=== PATIENT | male | born 1980 | race African-American/Black ===

== ENCOUNTER 2016-09-21 23:20 | Emergency (ER) | payer OTHER, MEDICAID ==
[~2016-09-21] VITALS: Ht 177.8 cm; Wt 82.0 kg
[2016-09-22] MEDS ORDERED: LORAZEPAM 1MG TABLET PO ONE (01:15)
[2016-09-22] MEDS ORDERED: TETANUS, DIPHTHERIA, PERTUSSIS VAC/PF 0.5ML (>7YR OLD) IM ONE (01:15)
[2016-09-22] MEDS ORDERED: OLANZAPINE 2.5MG TABLET PO ONE (01:15)
[2016-09-22] MEDS ORDERED: BACITRACIN ZINC OINT UDPKT TOP ONE (01:15)
[2016-09-22] MEDS ORDERED: LIDOCAINE HCL 1% 20ML VIAL (Pyxis) INJ MC ONE (01:15)
[2016-09-22 01:40] LABS: BASOPHILS % 0.3 % (0.0-2.0); EOSINOPHILS % 0.1 % (0.0-5.0); HEMOGLOBIN. 14.4 g/dL (14.0-18.0); LYMPHOCYTES % 17.6 % (20.0-50.0); MEAN CORPUSCULAR VOLUME 90.7 fL (80.0-94.0); MEAN PLATELET VOLUME 8.5 fl (7.4-10.4); PLATELET 222 x1000/uL (130-400); RED BLOOD CELL COUNT 4.63 mill/uL (4.7-6.1)
[2016-09-22 01:42] LABS: CHLORIDE 99 mEq/L (98-107)
[2016-09-22 01:51] LABS: CARBON DIOXIDE 28 mEq/L (21-32); ETHANOL BLOOD < 10 mg/dL
[2016-09-22] MEDS ORDERED: DIVALPROEX SODIUM 250MG ER TABLET PO ONE (02:15)
[2016-09-22] MEDS ORDERED: OLANZAPINE 10 MG/VIAL IM ONE (02:30)
[2016-09-22] MEDS ORDERED: LORAZEPAM 2MG/ML CPJ IM ONE (02:30)
[2016-09-22 09:07] LABS: CLARITY URINE CLEAR (CLEAR); COLOR URINE YELLOW (YELLOW); GLUCOSE URINE NEGATIVE (NEGATIVE); KETONES URINE TRACE (NEGATIVE); LEUKOCYTE ESTERASE URINE NEGATIVE (NEGATIVE); NITRITE URINE NEGATIVE (NEGATIVE); OCCULT BLOOD URINE NEGATIVE (NEGATIVE); PH URINE 5.5 (4.5-8.0); PROTEIN URINE NEGATIVE (NEGATIVE); SPECIFIC GRAVITY URINE 1.008 (1.005-1.030); UROBILINOGEN URINE 0.2 E.U./dL (0.2-1.0)
[2016-09-22 09:20] LABS: *AMPHETAMINES SCREEN URINE PRESUMTIVE POSITIVE (NEGATIVE); *BARBITURATES SCREEN URINE NEGATIVE (NEGATIVE); *BENZODIAZEPINES SCREEN URINE NEGATIVE (NEGATIVE); *COCAINE SCREEN URINE NEGATIVE (NEGATIVE); CANNABINOID URINE SCREEN NEGATIVE (NEGATIVE); METHADONE URINE SCREEN NEGATIVE (NEGATIVE); OPIATES URINE SCREEN NEGATIVE (NEGATIVE); PHENCYCLIDINE URINE SCREEN NEGATIVE (NEGATIVE)
[2016-09-22 16:07] VITALS: BP 121/84
== END 2016-09-22 16:09 | disposition home or self-care (01) ==
LOC: ER 23:20
DX: S81.011A Laceration without foreign body, right knee, initial encounter (principal); F22 Delusional disorders; F20.9 Schizophrenia, unspecified; F31.9 Bipolar disorder, unspecified; F43.10 Post-traumatic stress disorder, unspecified; F15.10 Other stimulant abuse, uncomplicated; Y04.0XXA Assault by unarmed brawl or fight, initial encounter; Y93.89 Activity, other specified; Y92.018 Other place in single-family (private) house as the place of occurrence of the external cause
CPT/HCPCS: 12002; 36415; 80053; 80305; 80307; 80329; 81003; 85025; 96372; 99284; G0482; J2060; J3490; 90715